=== PATIENT | female | born 1995 | race Caucasian/White ===

== ENCOUNTER 2021-03-21 12:31 | Emergency (ER) | payer OTHER ==
[~2021-03-21] VITALS: Ht 157.5 cm; Wt 67.1 kg
[2021-03-21 12:40] VITALS: BP 137/78
--- NOTE | 2021-03-21 12:44 | NUR ---
Patient ambulated to bed 12 with steady/even gait.
[2021-03-21] MEDS ORDERED: CLIN30GE5 TP (12:59)
--- NOTE | 2021-03-21 13:03 | NUR ---
26 Y/O F BIB SELF FROM HOME, PATIENT PRESENTS TO ED WITH C/O PAIN ON HER L GLUTEAL AREA FOR 5 DAY, UPON ASSESSMENT, PT HAS PUSTULE WITH REDNESS AROUND SITE. PT DENIES INJURY OR PICKING AT AREA. DENIES N/V/D; SKIN IS PINK/WARM/DRY; AAOX4 WITH EVEN AND STEADY GAIT; LUNGS CLEAR BL; HR EVEN AND REGULAR; PT DENIES ANY FEVER, CP, SOB, OR COUGH AT THIS TIME; PATIENT STATES PAIN OF 7/10 AT THIS TIME; VSS; PATIENT POSITIONED FOR COMFORT; HOB ELEVATED; BEDRAILS UP X2; BED DOWN. ER MD MADE AWARE OF PT STATUS. PMH: ASTHMA NKA
--- NOTE | 2021-03-21 13:06 | NUR ---
Patient discharged with v/s stable. Written and verbal after care instructions given and explained. Patient alert, oriented and verbalized understanding of instructions. Ambulatory with steady gait. All questions addressed prior to discharge. ID band removed. Patient advised to follow up with PMD. Rx of CLINDAMYCIN given. Patient educated on indication of medication including possible reaction and side effects. Opportunity to ask questions provided and answered.
[2021-03-21 13:07] VITALS: BP 137/78
== END 2021-03-21 13:06 | disposition home or self-care (01) ==
LOC: MED 12:31
DX: L70.9 Acne, unspecified (principal)
CPT/HCPCS: 99283

== ENCOUNTER 2021-05-10 20:25 | Emergency (ER) | payer OTHER ==
[~2021-05-10] VITALS: Ht 160 cm; Wt 66.7 kg
[~2021-05-10 20:25] MED LIST: CLIN30GE5 TP
[2021-05-10 20:32] VITALS: BP 114/70
--- NOTE | 2021-05-10 20:39 | NUR ---
PATIENT AMBULATORY TO [facility]. UA SAMPLE PROVIDED.
--- NOTE | 2021-05-10 21:40 | NUR ---
PT AMBULATED UNASSISTED TO ER BDE 03 WITH EVEN AND STEADY GAIT
--- NOTE | 2021-05-10 21:45 | NUR ---
PT BIB SELF FOR C/C LEFT FLANK PAIN X 1.5 WEEKS WITH RADIATING PAIN TO PELVIC REGION THE LAST 3 DAYS. PAIN 10/10. DENIES N/V/D, FEVER, CHILLS. REPORTS LYING FLAT IS MOST COMFORTABLY POSITION. DENIES DYSURIA, HEMATURIA. COMPLETE RECENT MENSTRUAL CYCLE ON 05/07/21. MED HX: ASTHMA ALLERGIES: NKA
[2021-05-10] MEDS ORDERED: KETOROLAC 15 MG/ML VIAL IM ONE (22:05)
[2021-05-10] MEDS ORDERED: methocarbamoL 500 MG TAB PO ONE (22:05)
--- NOTE | 2021-05-10 22:06 | NUR ---
PT TAKEN FOR XRAY VIA [facility].C.
--- NOTE | 2021-05-10 22:23 | NUR ---
PT RETURNED FROM RAD.
[2021-05-10] MEDS ORDERED: METH-1681 PO (22:56)
--- NOTE | 2021-05-10 23:09 | NUR ---
Patient discharged with v/s stable. Written and verbal after care instructions given and explained. Patient alert, oriented and verbalized understanding of instructions. Ambulatory with steady gait. All questions addressed prior to discharge. ID band removed. Patient advised to follow up with PMD. Rx of ROBAXIN given. Patient educated on indication of medication including possible reaction and side effects. Opportunity to ask questions provided and answered.
== END 2021-05-10 23:09 | disposition home or self-care (01) ==
LOC: MED 20:25
DX: M54.5 Low back pain (principal); J45.909 Unspecified asthma, uncomplicated; Z79.899 Other long term (current) drug therapy
CPT/HCPCS: 72100; 72220; 81002; 81025; 96372; 99284; J1885

== ENCOUNTER 2021-05-23 09:49 | Emergency (ER) | payer OTHER, SELFPAY ==
[~2021-05-23] VITALS: Ht 157.5 cm; Wt 66.7 kg
[~2021-05-23 09:49] MED LIST changes: +METH-1681 PO
[2021-05-23 09:56] VITALS: BP 113/74
--- NOTE | 2021-05-23 09:59 | NUR ---
BIB SELF C/O COUGH X 2 WEEKS.PMH: ASTHMA, TUBES JUNIOR EARS, R ANKLE SURGERY.
--- NOTE | 2021-05-23 09:59 | NUR ---
TENT 2
--- NOTE | 2021-05-23 10:36 | NUR ---
Mateus castrejon in [facility] - 05/23/21 at 1036 by [email or web address] COVID PCR DONE.
--- NOTE | 2021-05-23 10:36 | NUR ---
COVID PCR SWAB DONE.
--- NOTE | 2021-05-23 10:36 | NUR ---
COVID PCR DONE.
[2021-05-23] MEDS ORDERED: GUAI-646 PO (10:44)
[2021-05-23 10:59] VITALS: BP 119/73
--- NOTE | 2021-05-23 10:59 | NUR ---
Patient discharged with v/s stable. Written and verbal after care instructions given and explained. Patient alert, oriented and verbalized understanding of instructions. Ambulatory with steady gait. All questions addressed prior to discharge. ID band removed. Patient advised to follow up with PMD. Rx of ROBAXIN & CLINDAMYCIN given. Patient educated on indication of medication including possible reaction and side effects. Opportunity to ask questions provided and answered.
== END 2021-05-23 10:59 | disposition home or self-care (01) ==
LOC: MED 09:49
DX: R05.9 Cough, unspecified (principal); Z20.822 Contact with and (suspected) exposure to COVID-19; F10.10 Alcohol abuse, uncomplicated; J45.909 Unspecified asthma, uncomplicated; Z79.899 Other long term (current) drug therapy
CPT/HCPCS: 99283; U0003

== ENCOUNTER 2021-08-19 11:34 | Emergency (ER) | payer OTHER, SELFPAY ==
[~2021-08-19] VITALS: Ht 157.5 cm; Wt 65.3 kg
[~2021-08-19 11:34] MED LIST changes: +GUAI-646 PO
[2021-08-19 11:47] VITALS: BP 120/83
[2021-08-19] MEDS ORDERED: ACETAMINOPHEN EXTRA STRENGTH 500 MG TAB PO ONE (13:05)
--- NOTE | 2021-08-19 13:27 | NUR ---
NOVEL AND FLU SWABS COLLECTED AND WALKED TO LAB.
[2021-08-19] MEDS ORDERED: PROM118S5 PO (15:39)
[2021-08-19] MEDS ORDERED: PRED20TA5 PO (15:39)
[2021-08-19] MEDS ORDERED: NAPR-54 PO (15:39)
--- NOTE | 2021-08-19 15:46 | NUR ---
NO NURSING CARE GIVEN. Patient discharged with v/s stable. Written and verbal after care instructions given and explained. Patient alert, oriented and verbalized understanding of instructions. Ambulatory with steady gait. All questions addressed prior to discharge. ID band removed. Patient advised to follow up with PMD. Rx of NAPROSYN, DELTASONE, PROMETHAZINE-DM given. Patient educated on indication of medication including possible reaction and side effects. Opportunity to ask questions provided and answered.
== END 2021-08-19 15:46 | disposition home or self-care (01) ==
LOC: MED 11:34
DX: U07.1 COVID-19 (principal); J45.909 Unspecified asthma, uncomplicated
CPT/HCPCS: 71045; 87426; 87804; 99283; U0003

== ENCOUNTER 2021-11-01 12:39 | Emergency (ER) | payer OTHER, SELFPAY ==
[~2021-11-01] VITALS: Ht 157.5 cm; Wt 63.5 kg
[~2021-11-01 12:39] MED LIST changes: +NAPR-54 PO; +PRED20TA5 PO; +PROM118S5 PO
[2021-11-01 12:42] VITALS: BP 135/87
--- NOTE | 2021-11-01 13:14 | NUR ---
Patient ambulated with steady gait to bed 3.
--- NOTE | 2021-11-01 13:30 | NUR ---
26/F BIB SELF STATES FOR ONE WEEK SHE HAS BEEN BREAKING OUT ON HER FACE AND HAVING RIGHT HAND NUMBNES STATING "I THINK I'M ALLERGIC TO SOMETHING." DENIES NEW FOOD, DETERGENT OR BODY PRODUCTS, DENIES SOB.
--- NOTE | 2021-11-01 13:44 | NUR ---
Dr. Brambila is evaluating pt at bedside
[2021-11-01] MEDS ORDERED: HYD1C TP (14:04)
[2021-11-01] MEDS ORDERED: DOXY-487 PO (14:04)
--- NOTE | 2021-11-01 14:17 | NUR ---
Patient discharged with v/s stable. Written and verbal after care instructions given and explained for Contact Dermatitis. Patient alert, oriented and verbalized understanding of instructions. Ambulatory with steady gait. All questions addressed prior to discharge. ID band removed. Patient advised to follow up with PMD. Rx of Doxycycline, Hydrocortisone given. Patient educated on indication of medication including possible reaction and side effects. Opportunity to ask questions provided and answered. Work note provided.
== END 2021-11-01 14:17 | disposition home or self-care (01) ==
LOC: MED 12:39
DX: L23.89 Allergic contact dermatitis due to other agents (principal); J45.909 Unspecified asthma, uncomplicated; Z79.899 Other long term (current) drug therapy
CPT/HCPCS: 81025; 99283

== ENCOUNTER 2022-02-28 21:12 | Emergency (ER) | payer OTHER ==
[~2022-02-28] VITALS: Ht 157.5 cm; Wt 66.7 kg
[~2022-02-28 21:12] MED LIST changes: +DOXY-487 PO; -GUAI-646 PO; +HYD1C TP; +MUC600 PO
[2022-02-28 21:20] VITALS: BP 115/84
[2022-02-28] MEDS ORDERED: AMOX500C25 PO (22:15)
[2022-02-28 23:01] VITALS: BP 119/84
== END 2022-02-28 23:01 | disposition home or self-care (01) ==
LOC: MED 21:12
DX: H66.92 Otitis media, unspecified, left ear (principal); J45.909 Unspecified asthma, uncomplicated
CPT/HCPCS: 99283

== ENCOUNTER 2022-04-07 09:41 | Emergency (ER) | payer OTHER ==
[~2022-04-07] VITALS: Ht 157.5 cm; Wt 63.3 kg
[~2022-04-07 09:41] MED LIST changes: +AMOX500C25 PO
[2022-04-07 09:45] VITALS: BP 138/83
--- NOTE | 2022-04-07 10:00 | NUR ---
PT AMBULATED TO BED 3
--- NOTE | 2022-04-07 10:18 | NUR ---
27 Y.O. F C/O LOWER ABD PAIN, LOWER BACK PAIN,VAGINAL BLEEDING SINCE LAST NIGHT. LMP 02/22/22. PT TOOK PREGNACY TEST 5 DAYS AGO AND WAS POSITIVE. PT HAS CRAMPING 10/10 IN HER LOWER ABD AND BACK AT THIS TIME. DENIES PAIN WHILE URINATING. PT ALSO HAS SOME N/V TODAY. DENEIS D, SOB AND CHEST PAIN. A&OX4, SKIN INTACT, VITALS WNL AND STEADY GAIT. NKA PMH:ASTHMA, JUNIOR EAR TUBS
[2022-04-07] MEDS: ACETAMINOPHEN 325 MG TAB PO ONE (10:26)
[2022-04-07 10:36] LABS: ALBUMIN 3.8 g/dL (3.4-5.0); ANION GAP 9.4 (8-16); CARBON DIOXIDE 28.1 mmol/L (21-32); CREATININE 0.7 mg/dL (0.6-1.3); POTASSIUM 3.5 mmol/L (3.5-5.1); TOTAL BILIRUBIN 0.5 mg/dL (0.0-1.0)
[2022-04-07 10:40] LABS: BASOPHILS % (AUTO) 0.2 % (0.0-2.0); EOSINOPHILS % (AUTO) 0.9 % (0.0-4.0); HEMATOCRIT 39.3 % (36-48); HEMOGLOBIN 13.1 g/dL (12.0-16.0); LYMPHOCYTES # (AUTO) 1.2 K/uL (2.5-16.5); LYMPHOCYTES % (AUTO) 22.1 % (20.5-51.1); MEAN CORPUSCULAR HEMOGLOBIN 28 pg (27-31); MEAN CORPUSCULAR HGB CONC 33 g/dL (33-37); MEAN CORPUSCULAR VOLUME 83.5 fL (80-94); MONOCYTES # (AUTO) 0.4 K/uL (0.8-1.0); MONOCYTES % (AUTO) 7.8 % (1.7-9.3); NEUTROPHILS # (AUTO) 3.6 K/uL (1.8-7.7); PLATELET COUNT (AUTO) 262 K/uL (140-450); RED BLOOD CELL COUNT(AUTO) 4.71 MIL/uL (4.20-5.40); RED CELL DISTRIBUTION WIDTH 13.2 % (11.6-13.7); WHITE BLOOD COUNT (AUTO) 5.2 K/uL (4.8-10.8)
[2022-04-07 10:40] LABS: APPEARANCE,URINE BLOODY (CLEAR); COLOR,URINE BLOODY (YELLOW)
[2022-04-07 10:41] LABS: BILIRUBIN,URINE NEGATIVE (NEGATIVE); BLOOD, URINE 3+ (NEGATIVE); NITRITE, URINE POSITIVE (NEGATIVE); UGLUCOSE NEGATIVE (NEGATIVE)
[2022-04-07 10:42] LABS: LEUKOCYTE ESTERASE ,URINE 2+ (NEGATIVE)
[2022-04-07] MEDS ORDERED: NAPR-54 PO (10:53)
[2022-04-07] MEDS ORDERED: MORPHINE SULFATE 4 MG/ML SYR IVP ONE (11:00)
[2022-04-07] MEDS ORDERED: KETOROLAC 30 MG/ML VIAL IVP ONE (11:00)
[2022-04-07 11:22] LABS: RBC,URINE TOO NUMEROUS TO COUN /HPF (0-5)
[2022-04-07 11:35] VITALS: BP 138/83
== END 2022-04-07 11:35 | disposition home or self-care (01) ==
LOC: MED 09:41
DX: N93.8 Other specified abnormal uterine and vaginal bleeding (principal); J45.909 Unspecified asthma, uncomplicated; Z79.899 Other long term (current) drug therapy
CPT/HCPCS: 36415; 76817; 80053; 81001; 81025; 84702; 85025; 86900; 86901; 87086; 99284; Q0092; J1885; J2270

== ENCOUNTER 2022-08-31 09:07 | Emergency (ER) | payer OTHER ==
[~2022-08-31] VITALS: Ht 157.5 cm; Wt 66.2 kg
[2022-08-31 09:28] VITALS: BP 110/86
--- NOTE | 2022-08-31 09:30 | NUR ---
JANA AND FLU SWABS COLLECTED
--- NOTE | 2022-08-31 10:17 | NUR ---
27/F PRESENTS TO ED WITH C/O COUGH, CONGESTION X2 WEEKS AND VOMITING SINCE YESTERDAY. REPORTS TAKING MUCINEX WITH NO RELIEF. BOYFRIEND SICK AT HOME WITH SAME SYMPTOMS. DENIES FEVERS, DIZZINESS.
[2022-08-31] MEDS ORDERED: LORA1T1237 PO (10:49)
[2022-08-31] MEDS ORDERED: SODI1PKT7 NS (10:49)
[2022-08-31] MEDS ORDERED: PROM118S5 PO (10:49)
[2022-08-31] MEDS ORDERED: IBUP-1842 PO (10:49)
[2022-08-31] MEDS ORDERED: ALBU0.0912 INH (10:57)
--- NOTE | 2022-08-31 11:04 | NUR ---
Patient discharged with v/s stable. Written and verbal after care instructions ABOUT VIRAL ILLNESS AND HEADACHE given and explained. Patient alert, oriented and verbalized understanding of instructions. Ambulatory with steady gait. All questions addressed prior to discharge. ID band removed. Patient advised to follow up with PMD. Rx of MOTRIN, CLARITIN, PROMETHAZINE, SINUS RINSE KIT, INHALER given. Patient educated on indication of medication including possible reaction and side effects. Opportunity to ask questions provided and answered.
== END 2022-08-31 11:04 | disposition home or self-care (01) ==
LOC: MED 09:07
DX: B34.9 Viral infection, unspecified (principal); Z20.822 Contact with and (suspected) exposure to COVID-19; J45.909 Unspecified asthma, uncomplicated; Z72.89 Other problems related to lifestyle
CPT/HCPCS: 99283

== ENCOUNTER 2022-12-04 09:32 | Emergency (ER) | payer OTHER ==
[~2022-12-04] VITALS: Ht 157.5 cm; Wt 67.1 kg
[~2022-12-04 09:32] MED LIST changes: +ALBU0.0912 INH; +IBUP-1842 PO; +LORA1T1237 PO; +SODI1PKT7 NS
[2022-12-04 09:38] VITALS: BP 123/83
--- NOTE | 2022-12-04 10:00 | NUR ---
PATIENT AMBULATED TO BED 7
--- NOTE | 2022-12-04 10:07 | NUR ---
[employer] Pain[employer] evaluating patient at bedside.
[2022-12-04] MEDS ORDERED: KETOROLAC 30 MG/ML VIAL IM ONE (10:15)
--- NOTE | 2022-12-04 10:29 | NUR ---
27 y/o female bib self with c/o upper back pain x 4 days. Patient reports taking Tylenol and Ibuprofen with minimal relief. Denies any trauma or injury. Denies any fevers or chills. Medical History: Asthma NKDA
[2022-12-04 11:01] LABS: APPEARANCE,URINE CLEAR (CLEAR); BILIRUBIN,URINE NEGATIVE (NEGATIVE); BLOOD, URINE NEGATIVE (NEGATIVE); COLOR,URINE YELLOW (YELLOW); LEUKOCYTE ESTERASE ,URINE NEGATIVE (NEGATIVE); NITRITE, URINE NEGATIVE (NEGATIVE); PH,URINE 7.5 (5.0-9.0); UGLUCOSE NEGATIVE (NEGATIVE)
[2022-12-04] MEDS ORDERED: HYDROcodone/APAP 10/325 MG 1 TAB TAB PO ONE (11:20)
[2022-12-04] MEDS ORDERED: CYCLOBENZAPRINE 10 MG TAB PO ONE (12:15)
[2022-12-04] MEDS ORDERED: NAPR-54 PO (12:19)
[2022-12-04] MEDS ORDERED: CYCL-711 PO (12:19)
[2022-12-04] MEDS ORDERED: LID5T TP (12:19)
[2022-12-04] MEDS ORDERED: LIDOCAINE 5% 1 EA PATCH TP SCH (12:20)
[2022-12-04 12:40] VITALS: BP 123/83
--- NOTE | 2022-12-04 12:40 | NUR ---
Patient discharged with v/s stable. Written and verbal after care instructions given and explained. Patient alert, oriented and verbalized understanding of instructions. Ambulatory with SPOUSE to car. All questions addressed prior to discharge. ID band removed. Patient advised to follow up with PMD. Rx of FLEXERIL, LIDODERM, NAPROXEN (SENT) given. Patient educated on indication of medication including possible reaction and side effects. Opportunity to ask questions provided and answered.
--- NOTE | 2022-12-04 12:41 | NUR ---
The patient's care was reviewed and supervised by Sweetie Munoz, RN, RN.
[2022-12-05] MEDS ORDERED: LIDOCAINE 5% 1 EA PATCH TP SCH (09:00)
== END 2022-12-04 12:40 | disposition home or self-care (01) ==
LOC: MED 09:32
DX: S29.012A Strain of muscle and tendon of back wall of thorax, initial encounter (principal); J45.909 Unspecified asthma, uncomplicated; Z79.899 Other long term (current) drug therapy; X58.XXXA Exposure to other specified factors, initial encounter; Y93.89 Activity, other specified; Y92.89 Other specified places as the place of occurrence of the external cause; Y99.8 Other external cause status
CPT/HCPCS: 81003; 81025; 96372; 99284; J1885

== ENCOUNTER 2023-01-03 08:08 | Emergency (ER) | payer OTHER ==
[~2023-01-03] VITALS: Ht 157.5 cm; Wt 64.9 kg
[~2023-01-03 08:08] MED LIST changes: +CYCL-711 PO; +LID5T TP
[2023-01-03 08:34] VITALS: BP 118/82
--- NOTE | 2023-01-03 08:35 | NUR ---
PT AMBULATED TO BED 03
--- NOTE | 2023-01-03 09:17 | NUR ---
asssumed care , here fo eval gen body ache , n/v/f no md queenie at to examine
[2023-01-03] MEDS ORDERED: KETOROLAC 60 MG/2 ML VIAL IM ONE (09:20)
[2023-01-03] MEDS ORDERED: IBUP-2213 PO (09:28)
[2023-01-03] MEDS ORDERED: ONDA8TAB87 PO (09:28)
[2023-01-03] MEDS ORDERED: PRED20TA5 PO (09:28)
--- NOTE | 2023-01-03 10:01 | NUR ---
Patient discharged with v/s stable. Written and verbal after care instructions given and explained. Patient alert, oriented and verbalized understanding of instructions. Ambulatory with to home. All questions addressed prior to discharge. ID band removed. Patient advised to follow up with PMD. Rx ofMORIN, ZOFRAN given. Patient educated on indication of medication including possible reaction and side effects. Opportunity to ask questions provided and answered.
== END 2023-01-03 09:59 | disposition home or self-care (01) ==
LOC: MED 08:08
DX: J06.9 Acute upper respiratory infection, unspecified (principal); J45.909 Unspecified asthma, uncomplicated; Z79.899 Other long term (current) drug therapy; Z98.890 Other specified postprocedural states
CPT/HCPCS: 96372; 99283; J1885

== ENCOUNTER 2023-05-02 11:57 | Emergency (ER) | payer MEDICAID, OTHER ==
[~2023-05-02] VITALS: Ht 157.5 cm; Wt 65.3 kg
[~2023-05-02 11:57] MED LIST changes: +IBUP-2213 PO; +ONDA8TAB87 PO
[2023-05-02 12:27] VITALS: BP 125/85; PULSE 90; RESP 20; TEMP 98.6; O2SAT 98
[2023-05-02 13:02] LABS: APPEARANCE,URINE CLEAR (CLEAR); BILIRUBIN,URINE 1+ (NEGATIVE); BLOOD, URINE TRACE-I (NEGATIVE); COLOR,URINE YELLOW (YELLOW); LEUKOCYTE ESTERASE ,URINE 1+ (NEGATIVE); NITRITE, URINE NEGATIVE (NEGATIVE); PROTEIN,URINE NEGATIVE (NEGATIVE); UGLUCOSE NEGATIVE (NEGATIVE); UROBILINOGEN,URINE 0.2 EU/dL (0.2 - 1)
[2023-05-02 13:14] LABS: BACTERIA,URINE >30 (MANY) /HPF (None Seen); ICTOTEST NEGATIVE (NEGATIVE); MUCUS,URINE None Seen /LPF (None Seen); RBC,URINE 0-5 /HPF (0-5); TRICHOMONAS,URINE None Seen /HPF (None Seen); YEAST,URINE None Seen /HPF (None Seen)
[2023-05-02 13:15] LABS: WHITE BLOOD CELL CASTS,URINE None Seen /LPF (None Seen)
[2023-05-02] MEDS ORDERED: NACL 0.9% 1,000 ML IV ONE (14:25)
[2023-05-02] MEDS ORDERED: DEXT 5% / NACL 0.9% 500 ML IV ONE (14:25)
[2023-05-02] MEDS ORDERED: PYRIDOXINE 50 MG TAB ONE (14:34)
[2023-05-02 15:27] LABS: BASOPHILS % (AUTO) 0.2 % (0.0-2.0); EOSINOPHILS # (AUTO) 0.1 K/uL (0-0.4); EOSINOPHILS % (AUTO) 1.2 % (0.0-4.0); HEMATOCRIT 39.1 % (36-48); HEMOGLOBIN 13.1 g/dL (12.0-16.0); LYMPHOCYTES # (AUTO) 1.5 K/uL (2.5-16.5); MEAN CORPUSCULAR HEMOGLOBIN 28 pg (27-31); MEAN CORPUSCULAR HGB CONC 34 g/dL (33-37); MEAN CORPUSCULAR VOLUME 82.3 fL (80-94); MONOCYTES # (AUTO) 0.6 K/uL (0.8-1.0); NEUTROPHILS # (AUTO) 5.9 K/uL (1.8-7.7); NEUTROPHILS % (AUTO) 72.6 % (42.2-75.2); PLATELET COUNT (AUTO) 272 K/uL (140-450); RED BLOOD CELL COUNT(AUTO) 4.75 MIL/uL (4.20-5.40); WHITE BLOOD COUNT (AUTO) 8.1 K/uL (4.8-10.8)
[2023-05-02 15:36] VITALS: TEMP 98.4; O2SAT 98
[2023-05-02 15:59] LABS: ANION GAP 14.2 (8-16); CALCIUM 8.7 mg/dL (8.5-10.1); CARBON DIOXIDE 25.3 mmol/L (21-32); CREATININE 0.6 mg/dL (0.6-1.3); POTASSIUM 3.5 mmol/L (3.5-5.1); TOTAL BILIRUBIN 0.4 mg/dL (0.0-1.0); TOTAL PROTEIN, SERUM 7.2 g/dL (6.4-8.2)
[2023-05-02] MEDS ORDERED: DOXY25TA61 PO (16:50)
[2023-05-02] MEDS ORDERED: PYRI-218 PO (16:50)
[2023-05-02] MEDS ORDERED: CEPH-588 PO (16:50)
[2023-05-02 17:01] VITALS: BP 115/64; PULSE 74; RESP 17; O2SAT 99
[2023-05-03] MEDS ORDERED: PYRIDOXINE 50 MG TAB PO ONE (09:00)
== END 2023-05-02 17:02 | disposition home or self-care (01) ==
LOC: MED 11:57
DX: O21.8 Other vomiting complicating pregnancy (principal); O23.11 Infections of bladder in pregnancy, first trimester; O26.891 Other specified pregnancy related conditions, first trimester; R10.2 Pelvic and perineal pain; E86.0 Dehydration; N30.00 Acute cystitis without hematuria; J45.909 Unspecified asthma, uncomplicated; Z79.899 Other long term (current) drug therapy
CPT/HCPCS: 36415; 76815; 80053; 81001; 81025; 83690; 84702; 85025; 87086; 96361; 96365; 99285; J7030; Q0092; 99284

== ENCOUNTER 2023-05-09 16:41 | Emergency (ER) | payer MEDICAID ==
[~2023-05-09] VITALS: Ht 157.5 cm; Wt 64.9 kg
[~2023-05-09 16:41] MED LIST changes: +CEPH-588 PO; +DOXY25TA61 PO; +PYRI-218 PO
[2023-05-09 17:19] VITALS: BP 133/77; PULSE 89; RESP 20; TEMP 98.3; O2SAT 99
[2023-05-09] MEDS ORDERED: ONDANSETRON 4 MG ODT PO ONE (17:40)
[2023-05-09] MEDS ORDERED: ONDA8TAB87 PO (19:22)
== END 2023-05-09 19:28 | disposition home or self-care (01) ==
LOC: MED 16:41
DX: O26.891 Other specified pregnancy related conditions, first trimester (principal); R11.2 Nausea with vomiting, unspecified; J45.909 Unspecified asthma, uncomplicated; Z3A.01 Less than 8 weeks gestation of pregnancy; Z79.899 Other long term (current) drug therapy
CPT/HCPCS: 81002; 81025; 99283; Q0162

== ENCOUNTER 2023-07-28 12:24 | Emergency (ER) | payer MEDICAID ==
[~2023-07-28] VITALS: Ht 157.5 cm; Wt 59.9 kg
[2023-07-28 12:32] VITALS: BP 104/67; PULSE 91; RESP 18; TEMP 98; O2SAT 97
[2023-07-28 13:47] LABS: BASOPHILS % (AUTO) 0.1 % (0.0-2.0); EOSINOPHILS # (AUTO) 0.1 K/uL (0-0.4); HEMATOCRIT 32.8 % (36-48); HEMOGLOBIN 10.9 g/dL (12.0-16.0); LYMPHOCYTES # (AUTO) 1.5 K/uL (2.5-16.5); LYMPHOCYTES % (AUTO) 16.3 % (20.5-51.1); MEAN CORPUSCULAR HEMOGLOBIN 28 pg (27-31); MEAN CORPUSCULAR HGB CONC 33 g/dL (33-37); MEAN CORPUSCULAR VOLUME 83.3 fL (80-94); MONOCYTES # (AUTO) 0.7 K/uL (0.8-1.0); MONOCYTES % (AUTO) 7.5 % (1.7-9.3); NEUTROPHILS # (AUTO) 6.8 K/uL (1.8-7.7); NEUTROPHILS % (AUTO) 75.1 % (42.2-75.2); PLATELET COUNT (AUTO) 290 K/uL (140-450); RED BLOOD CELL COUNT(AUTO) 3.94 MIL/uL (4.20-5.40); RED CELL DISTRIBUTION WIDTH 14.1 % (11.6-13.7)
[2023-07-28 14:00] LABS: ANION GAP 9.8 (8-16); CALCIUM 8.7 mg/dL (8.5-10.1); CARBON DIOXIDE 26.4 mmol/L (21-32); CREATININE 0.4 mg/dL (0.6-1.3); POTASSIUM 4.2 mmol/L (3.5-5.1)
[2023-07-28 14:05] LABS: ALBUMIN 2.9 g/dL (3.4-5.0); TOTAL BILIRUBIN 0.2 mg/dL (0.0-1.0); TOTAL PROTEIN, SERUM 6.8 g/dL (6.4-8.2)
[2023-07-28 15:34] VITALS: BP 104/67; PULSE 91; RESP 18; TEMP 98; O2SAT 97
[2023-07-28 16:05] LABS: APPEARANCE,URINE SL CLOUDY (CLEAR); BILIRUBIN,URINE NEGATIVE (NEGATIVE); BLOOD, URINE NEGATIVE (NEGATIVE); COLOR,URINE YELLOW (YELLOW); LEUKOCYTE ESTERASE ,URINE 2+ (NEGATIVE); NITRITE, URINE NEGATIVE (NEGATIVE); PROTEIN,URINE NEGATIVE (NEGATIVE); UGLUCOSE NEGATIVE (NEGATIVE); UROBILINOGEN,URINE 0.2 EU/dL (0.2 - 1)
[2023-07-28 16:09] LABS: RBC,URINE 0 /HPF (0-5)
[2023-07-28 16:10] LABS: BACTERIA,URINE 1+ /HPF (None Seen); MUCUS,URINE None Seen /LPF (None Seen); SQUAMOUS EPITHELIAL CELL,UR 4-10 (MOD) /LPF (0-3 (FEW))
== END 2023-07-28 15:12 | disposition home or self-care (01) ==
LOC: MED 12:24
DX: O26.892 Other specified pregnancy related conditions, second trimester (principal); R10.30 Lower abdominal pain, unspecified; O99.512 Diseases of the respiratory system complicating pregnancy, second trimester; J45.909 Unspecified asthma, uncomplicated; Z3A.18 18 weeks gestation of pregnancy; Z79.899 Other long term (current) drug therapy; Z79.1 Long term (current) use of non-steroidal anti-inflammatories (NSAID); Z79.2 Long term (current) use of antibiotics
CPT/HCPCS: 36415; 76805; 80048; 80076; 81001; 85025; 86886; 86900; 86901; 87086; 99284; Q0092

== ENCOUNTER 2024-03-01 06:35 | Emergency (ER) | payer BC, MEDICAID ==
[~2024-03-01] VITALS: Ht 157.5 cm; Wt 68.0 kg
[~2024-03-01 06:35] MED LIST changes: +NAPR-337 PO; -NAPR-54 PO
[2024-03-01 06:39] VITALS: BP 123/83; PULSE 88; RESP 16; TEMP 97.9; O2SAT 100
[2024-03-01] MEDS ORDERED: LIDOCAINE/EPI 1% 1:100000 20 ML VIAL INJ ONE ×2 (07:11)
[2024-03-01] MEDS: LIDOCAINE MPF 1% 10 MG/ML VIAL INJ ONE (07:12)
[2024-03-01] MEDS ORDERED: SULF-59 PO (07:26)
[2024-03-01 08:00] VITALS: BP 120/78; PULSE 76; RESP 18; TEMP 97.8; O2SAT 100
== END 2024-03-01 08:00 | disposition home or self-care (01) ==
LOC: MED 06:35
DX: L03.011 Cellulitis of right finger (principal); J45.909 Unspecified asthma, uncomplicated; Z79.1 Long term (current) use of non-steroidal anti-inflammatories (NSAID); Z79.2 Long term (current) use of antibiotics; Z79.899 Other long term (current) drug therapy
CPT/HCPCS: 99283; J2001